=== PATIENT | female | born 2000 | race African-American/Black ===

== ENCOUNTER 2021-07-10 16:35 | Emergency (ER) | payer OTHER, SELFPAY ==
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
[2021-07-10 16:51] VITALS: BP 100/62; PULSE 64; RESP 16; TEMP 36.4; O2SAT 99; BMI 17.9
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
[2021-07-10] MEDS: Acetaminophen 325 MG TABLET 975 MG PO (18:28)
[2021-07-10 19:14] LABS: UPreg QC Valid YES; Urine Pregnancy NEGATIVE (NEGATIVE)
== END 2021-07-10 19:41 | disposition home or self-care (01) ==
PROVIDERS: Nurse Practitioner Family; Emergency Provider Emergency Medicine Emergency Medical Services
DX: S06.0X9A Concussion with loss of consciousness of unspecified duration, initial encounter (principal); M62.838 Other muscle spasm; Y04.2XXA Assault by strike against or bumped into by another person, initial encounter; Y93.9 Activity, unspecified; Y92.9 Unspecified place or not applicable; Y99.9 Unspecified external cause status
CPT/HCPCS: 70450; 72125; 81025; 99284

== ENCOUNTER → 2021-09-23 12:45 | Outpatient (BNVA) | payer OTHER, SELFPAY | PROVIDERS: Visit Provider Advanced Practice Midwife | DX: Z32.02 Encounter for pregnancy test, result negative (principal); N92.6 Irregular menstruation, unspecified | CPT/HCPCS: 81025; 99202 ==

== ENCOUNTER 2021-12-28 07:57 | Outpatient (REF) | payer OTHER, SELFPAY ==
[2021-12-28 17:58] LABS: CT PCR DETECTED (Not Detect.); NG PCR NOT DETECTED (Not Detect.)
[2021-12-29 09:20] LABS: BV Int Neg Control Negative (Negative); BV Int Pos Control Positive (Positive)
== END 2021-12-28 07:58 | disposition home or self-care (01) ==
LOC: HO.LNP 07:57
PROVIDERS: Visit Provider Advanced Practice Midwife
DX: O26.899 Other specified pregnancy related conditions, unspecified trimester (principal); Z32.01 Encounter for pregnancy test, result positive; R10.2 Pelvic and perineal pain; N89.8 Other specified noninflammatory disorders of vagina
CPT/HCPCS: 81025; 87480; 87491; 87510; 87591; 87660; 99212

== ENCOUNTER → 2022-04-12 10:29 | Outpatient (BNVA) | payer SELFPAY | PROVIDERS: Visit Provider Physician Assistant Medical | DX: Z02.1 Encounter for pre-employment examination (principal) ==